=== PATIENT | female | born 1985 | race Caucasian/White ===

== ENCOUNTER → 2019-01-01 11:52 | Outpatient (CLI) | payer OTHER, SELFPAY ==
[2019-01-01 11:16] VITALS: BMI 29.7
[2019-01-01 12:28] LABS: Estradiol 95.5 pg/mL; Follicle Stimulating Hormone 2.5 mIU/mL
[2019-01-03 06:07] LABS: DHEA Sulfate 258.6 ug/dL (84.8-378.0)
[2019-01-03 15:39] LABS: Testosterone Free 1.3 pg/mL (0.0-4.2)
== END ==
PROVIDERS: Family Provider Physician Assistant; PCP Physician Assistant; Referring Provider Nurse Practitioner Women's Health; Visit Provider Nurse Practitioner Women's Health
DX: R68.82 Decreased libido (principal)
CPT/HCPCS: 36415; 82627; 82670; 83001; 84402; 82626

== ENCOUNTER → 2019-10-27 | Outpatient (CLI) | payer OTHER, SELFPAY ==
[2019-10-27 09:42] VITALS: BMI 29.7
[2019-10-29 09:49] LABS: HPV APTIMA, High Risk Negative (Negative)
== END | disposition home or self-care (01) ==
LOC: LABSPEC 11:09
PROVIDERS: PCP Physician Assistant; Visit Provider Nurse Practitioner Women's Health
DX: Z12.4 Encounter for screening for malignant neoplasm of cervix (principal)
CPT/HCPCS: 87624; 88175; G0145

== ENCOUNTER 2021-09-03 10:10 | Outpatient (CLI) | payer OTHER, SELFPAY ==
--- NOTE | 2021-09-03 10:27 | RAD_ITS ---
STUDY: X-RAY - ABDOMEN/PELVIS REASON FOR EXAM: Female, 36 years old. constipation TECHNIQUE: AP supine view. 2 images. COMPARISON: None. FINDINGS: The bowel gas pattern is normal. There is no bowel obstruction. Moderate amount of stool throughout the colon to the rectum. Scattered small densities throughout the abdomen may be surgical suture material or ingested material. No abnormal mass or calcification is seen. Sensitivity for free air limited on supine view. Included lung bases are clear. RAD/Abdomen Single View IMPRESSION: Moderate colonic stool. No bowel obstruction. Electronically Signed: Lizbeth Lee MD at 5:56 EDT ,
== END 2021-09-03 23:59 | disposition home or self-care (01) ==
PROVIDERS: PCP Physician Assistant; Visit Provider Internal Medicine Gastroenterology
DX: K59.00 Constipation, unspecified (principal)
CPT/HCPCS: 74018

== ENCOUNTER 2021-09-05 17:18 | Outpatient (CLI) | payer OTHER, SELFPAY ==
--- NOTE | 2021-09-05 17:22 | RAD_ITS ---
EXAM: XR ABDOMEN, 1 VIEW CLINICAL INDICATION: constipation TECHNIQUE: Frontal supine view of the abdomen/pelvis. This report was created using [email or web address] report generation technology. COMPARISON: 09.03.21. FINDINGS: LOWER THORAX: No acute pathology. GASTROINTESTINAL TRACT: Stool throughout the colon. Sitz markers are noted in the descending colon and a majority are in the rectosigmoid region. Non-obstructive. No bowel or stomach distention. ORGANS: Unremarkable as visualized. No organomegaly. No abnormal calcifications. BONES/JOINTS: No acute pathology. SOFT TISSUES: No acute pathology. RAD/Abdomen Single View IMPRESSION: 1. Stool throughout the colon. 2. Sitz markers are noted in the descending colon and a majority are in the rectosigmoid region. Electronically Signed: German Diaz MD at 18:33 EDT ,
== END 2021-09-05 23:59 | disposition home or self-care (01) ==
LOC: RAD 17:19
PROVIDERS: PCP Physician Assistant; Visit Provider Internal Medicine Gastroenterology
DX: K59.00 Constipation, unspecified (principal)
CPT/HCPCS: 74018

== ENCOUNTER → 2024-06-16 | Outpatient (CLI) | payer OTHER, SELFPAY ==
[2024-06-16 08:26] LABS: Ferritin 24 ng/mL (8-252); Iron 78 ug/dL (50-170); Iron Binding Capacity,Total 310 ug/dL (250-450); PERCENT IRON SATURATION 25.2 % (15.0-55.0)
== END | disposition home or self-care (01) ==
DX: K59.00 Constipation, unspecified (principal)
CPT/HCPCS: 36415; 82728; 83540; 83550

== ENCOUNTER → 2025-02-03 | Outpatient (CLI) | payer OTHER, SELFPAY ==
[2025-02-03 18:56] LABS: Ferritin 46 ng/mL (22-378); Vitamin D,25 Hydroxy 53.6 ng/mL (30-100)
== END | disposition home or self-care (01) ==
LOC: MTLAB 16:37
PROVIDERS: PCP Physician Assistant; Referring Provider Physician Assistant Medical; Visit Provider Physician Assistant Medical
DX: L65.9 Nonscarring hair loss, unspecified (principal)
CPT/HCPCS: 36415; 82306; 82728